=== PATIENT | female | born 1985 ===

== ENCOUNTER 2019-01-12 18:55 | Emergency (ER) | payer MEDICAID ==
--- NOTE | 2019-01-12 21:41 | Emergency Department Report ---
Chief Complaint: Extremity Injury, Lower Stated Complaint: LOWER BACK PAIN Time Seen by Provider: 01/12/19 21:38 - HPI History of Present Illness: pt presents with lower back pain that began two days ago after getting up from the bed hurts to bend over no fall, injury, or trauma no heavy lifting PMHx HTN, CKD, lupus states that she carvedilol and lisinopril, states she is out of nifedipine 90 mg sees a casting tester - Exam Vital Signs: Vital Signs 01/12/19 19:35 Temperature 98.3 F Pulse Rate 98 H Respiratory 18 Rate Blood Pressure 178/115 O2 Sat by Pulse 99 Oximetry MSE screening note: Focused history performed. Due to findings the following was ordered: UA, labs, XR lumbar spine ED Disposition for MSE Condition: Stable
[2019-01-12 22:21] LABS: Basophils # (Auto) 0.1 K/mm3 (0.0-0.1); Basophils % (Auto) 0.5 % (0.0-1.8); Eosinophils # (Auto) 0.1 K/mm3 (0.0-0.4); Eosinophils % (Auto) 0.9 % (0.0-4.3); Hematocrit 30.7 % (30.3-42.9); Hemoglobin 9.6 gm/dl (10.1-14.3); Lymphocytes # (Auto) 2.9 K/mm3 (1.2-5.4); Lymphocytes % (Auto) 28.3 % (13.4-35.0); Mean Corpuscular HGB Conc 31 % (30-34); Mean Corpuscular Volume 80 fl (79-97); Monocytes # (Auto) 0.5 K/mm3 (0.0-0.8); Monocytes % (Auto) 4.4 % (0.0-7.3); Platelet Count 313 K/mm3 (140-440); Red Blood Count 3.85 M/mm3 (3.65-5.03); Red Cell Distribution Width 15.6 % (13.2-15.2)
[2019-01-12 22:36] LABS: Calcium 8.9 mg/dL (8.4-10.2)
[2019-01-12 23:14] LABS: Amorphous Crystals,Urine Few; Bilirubin,Urine NEG (Negative); Blood,Urine NEG (Negative); Color,Urine Yellow (Yellow); Urobilinogen,Urine < 2.0 mg/dL (<2.0)
[2019-01-12 23:18] LABS: HCG Qualitative,Urine Negative (Negative)
--- NOTE | 2019-01-13 00:16 | XRay Report ---
PROCEDURE: XR SPINE LUMBOSACRAL 2-3V TECHNIQUE: 3 views of the lumbar spine were obtained. HISTORY: low back pain COMPARISONS: None FINDINGS: The disc heights and alignment appear normal. There is no evidence of fracture. The SI joints appear normal. The soft tissues appear normal. IMPRESSION: Within normal limits.. This document is electronically signed by David Harris MD., January 13 2019 12:14:37 AM ET
--- NOTE | 2019-01-13 00:39 | Emergency Department Report ---
ED Back Pain/Injury HPI - General Chief Complaint: Extremity Injury, Lower Stated Complaint: LOWER BACK PAIN Time Seen by Provider: 01/12/19 21:38 Source: patient Limitations: No Limitations - History of Present Illness Initial Comments: Pt is a 33 yo female who presents to the ED with c/o bilateral lower back pain that began two days ago. She states she was carrying her daughters motor bike bending over and the next morning when she got out of bed she began experiencing pain. She states movements hurt and bending over hurts. She denies any fall or trauma. Pt denies any numbness, weakness, bowel/bladder incontinence. The patient has a PMHx HTN, CKD, lupus. She states her last "Cr measurement was around 6." she states she is currently on the transplant list. She states she is supposed to be starting peritoneal dialysis soon, pt does see a heat treating furnace tender. Pt states that takes she carvedilol and lisinopril, states she is out of nifedipine 90 mg. The patient has not taken her nifedipine but states she has called to refill it and will be picking it up. - Related Data Previous Rx's Medication Instructions Recorded Last Taken Type Cyclobenzaprine [Flexeril] 10 mg PO QHS PRN #10 tablet 01/13/19 Unknown Rx Allergies Allergy/AdvReac Type Severity Reaction Status Date / Time No Known Allergies Allergy Verified 01/12/19 19:35 ED Review of Systems ROS: Stated complaint: LOWER BACK PAIN Other details as noted in HPI Comment: All other systems reviewed and negative ED Past Medical Hx - Past Medical History Hx Hypertension: Yes Hx Renal Disease: Yes (stage IV) Additional medical history: lupus - Surgical History Additional Surgical History: kidney biospy, - Social History Smoking Status: Never Smoker Substance Use Type: None - Medications Home Medications: Home Medications Medication Instructions Recorded Confirmed Last Taken Type Cyclobenzaprine [Flexeril] 10 mg PO QHS PRN #10 tablet 01/13/19 Unknown Rx ED Physical Exam - General Limitations: No Limitations General appearance: alert, in no apparent distress - Head Head exam: Present: atraumatic, normocephalic - Eye Eye exam: Present: normal appearance - ENT ENT exam: Present: mucous membranes moist - Respiratory Respiratory exam: Absent: respiratory distress - Cardiovascular Cardiovascular Exam: Present: regular rate, normal rhythm, normal heart sounds. Absent: systolic murmur, diastolic murmur, rubs, gallop - Back Exam Back exam: Present: normal inspection, full ROM, paraspinal tenderness (bilateral lumbar paraspinal muscular TTP, no midline C-spine, T-spine, or L- spine tenderness, no step offs, no deformities). Absent: vertebral tenderness - Neurological Exam Neurological exam: Present: alert, oriented X3, CN II-XII intact, normal gait, other (equal aircraft restorer strength, normal heel to craven, 5/5 muscle strength in the BUE/BLE, sensation intact, no focal neuro deficit). Absent: motor sensory d eficit - Psychiatric Psychiatric exam: Present: normal affect, normal mood - Skin Skin exam: Present: warm, dry, intact ED Course Vital Signs 01/12/19 01/12/19 01/13/19 19:35 21:38 01:02 Temperature 98.3 F 98.3 F Pulse Rate 98 H 99 H 88 Respiratory 18 18 17 Rate Blood Pressure 178/115 178/115 Blood Pressure 144/99 [Left] O2 Sat by Pulse 99 100 100 Oximetry ED Medical Decision Making - Lab Data Result diagrams: 01/12/19 21:51 01/12/19 21:51 Lab Results 01/12/19 01/12/19 01/12/19 Range/Units 21:51 21:51 22:47 WBC 10.3 (4.5-11.0) K/mm3 RBC 3.85 (3.65-5.03) M/mm3 Hgb 9.6 L (10.1-14.3) gm/dl Hct 30.7 (30.3-42.9) % MCV 80 (79-97) fl MCH 25 L (28-32) pg MCHC 31 (30-34) % RDW 15.6 H (13.2-15.2) % Plt Count 313 (140-440) K/mm3 Lymph % (Auto) 28.3 (13.4-35.0) % [place] % (Auto) 4.4 (0.0-7.3) % Eos % (Auto) 0.9 (0.0-4.3) % Baso % (Auto) 0.5 (0.0-1.8) % Lymph # 2.9 (1.2-5.4) K/mm3 [place] # 0.5 (0.0-0.8) K/mm3 Eos # 0.1 (0.0-0.4) K/mm3 Baso # 0.1 (0.0-0.1) K/mm3 Seg Neutrophils % 65.9 (40.0-70.0) % Seg Neutrophils # 6.8 (1.8-7.7) K/mm3 Sodium 139 (137-145) mmol/L Potassium 5.3 H (3.6-5.0) mmol/L Chloride 106.9 (98-107) mmol/L Carbon Dioxide 18 L (22-30) mmol/L Anion Gap 19 mmol/L BUN 56 H (7-17) mg/dL Creatinine 6.2 H (0.7-1.2) mg/dL Estimated GFR 8 ml/min BUN/Creatinine Ratio 9 % Glucose 93 (65-100) mg/dL Calcium 8.9 (8.4-10.2) mg/dL Urine Color Yellow (Yellow) Urine Turbidity Clear (Clear) Urine pH 5.0 (5.0-7.0) Ur Specific [place] 1.008 (1.003-1.030) Urine Protein 100 mg/dl (Negative) mg/dL Urine Glucose (UA) 50 (Negative) mg/dL Urine Ketones Neg (Negative) mg/dL Urine Blood Neg (Negative) Urine Nitrite Neg (Negative) Urine Bilirubin Neg (Negative) Urine Urobilinogen < 2.0 (<2.0) mg/dL Ur Leukocyte Esterase Neg (Negative) Urine WBC (Auto) 2.0 (0.0-6.0) /HPF Urine RBC (Auto) 3.0 (0.0-6.0) /HPF U Epithel Cells (Auto) 3.0 (0-13.0) /HPF Amorphous Crystals Few Urine HCG, Qual Negative (Negative) Vital Signs 01/12/19 01/12/19 01/13/19 19:35 21:38 01:02 Temperature 98.3 F 98.3 F Pulse Rate 98 H 99 H 88 Respiratory 18 18 17 Rate Blood Pressure 178/115 178/115 Blood Pressure 144/99 [Left] O2 Sat by Pulse 99 100 100 Oximetry - Radiology Data Radiology results: report reviewed PROCEDURE: XR SPINE LUMBOSACRAL 2-3V TECHNIQUE: 3 views of the lumbar spine were obtained. HISTORY: low back pain COMPARISONS: None FINDINGS: The disc heights and alignment appear normal. There is no evidence of fracture. The SI joints appear normal. The soft tissues appear normal. IMPRESSION: Within normal limits.. This document is electronically signed by David Harris MD., January 13 2019 12:14:37 AM ET - Medical Decision Making Pt is a 33 yo female who presents to the ED with c/o bilateral lower back pain that began two days ago. She states she was carrying her daughters motor bike bending over and the next morning when she got out of bed she began experiencing pain. She states movements hurt and bending over hurts. She denies any fall or trauma. Pt denies any numbness, weakness, bowel/bladder incontinence. The patient has a PMHx HTN, CKD, lupus. She states her last "Cr measurement was around 6." she states she is currently on the transplant list. She states she is supposed to be starting peritoneal dialysis soon, pt does see a heat treating furnace tender. Pt states that takes she carvedilol and lisinopril, states she is out of nifedipine 90 mg. The patient has not taken her nifedipine but states she has called to refill it and will be picking it up. XR of the l-spine with no acute process. UA is normal, urine preg is negative. Labs with elevated Cr/BUN per pt this is baseline. Will tx pt for muscle strain. Advised to use tylenol OTC. Will prescribe short course of muscle relaxer. Advised to not drive or operate heavy machinery while taking. Discussed to use ice, heating pad, rest, and epsom salt bath. Please follow up with PCP and heat treating furnace tender in the next 2-3 days. Return to the ED for any new or worsening symptoms. Discussed with pt the elevation in her blood pressure, improved on repeat but would need to follow up with PCP for further eval and management. - Differential Diagnosis strain, fx, dislocation, DDD Critical care attestation.: If time is entered above; I have spent that time in minutes in the direct care of this critically ill patient, excluding procedure time. ED Disposition Clinical Impression: Lumbar strain Qualifiers: Encounter type: initial encounter Qualified Code(s): S39.012A - Strain of muscle, fascia and tendon of lower back, initial encounter Back pain Qualifiers: Back pain location: low back pain Chronicity: acute Back pain laterality: bilateral Sciatica presence: without sciatica Qualified Code(s): M54.5 - Low back pain CKD (chronic kidney disease) Qualifiers: Chronic kidney disease stage: stage 4 (severe) Qualified Code(s): N18.4 - Chronic kidney disease, stage 4 (severe) HTN (hypertension) Qualifiers: Hypertension type: unspecified Qualified Code(s): I10 - Essential (primary) hypertension Disposition: TO HOME OR SELFCARE Is pt being admited?: No Does the pt Need Aspirin: No Condition: Stable Instructions: Muscle Strain (ED), Hypertension (ED) Additional Instructions: May use tylenol over the counter. Do not drive or operate heavy machinery while taking muscle relaxer. May use ice, heating pad, rest, and epsom salt bath. Please follow up with primary care doctor and heat treating furnace tender in the next 2-3 days. Return to the emergency room for any new or worsening symptoms. Please take all of your blood pressure medication and speak with your doctors regarding the elevation in your blood pressure. Prescriptions: Cyclobenzaprine [Flexeril] 10 mg PO QHS PRN #10 tablet PRN Reason: Muscle Spasm Referrals: ANT SEWELL MD [Primary Care Provider] - 2-3 Days your, heat treating furnace tender [Other] - 2-3 Days Time of Disposition: 00:49 Print Language: [place] CITIZ[place]
[2019-01-13 01:03] VITALS: BP 144/99
== END 2019-01-13 01:02 | disposition home or self-care (01) ==
LOC: ED 18:55
DX: S39.012A Strain of muscle, fascia and tendon of lower back, initial encounter (principal); I12.9 Hypertensive chronic kidney disease with stage 1 through stage 4 chronic kidney disease, or unspecified chronic kidney disease; N18.4 Chronic kidney disease, stage 4 (severe); Z87.39 Personal history of other diseases of the musculoskeletal system and connective tissue; X50.0XXA Overexertion from strenuous movement or load, initial encounter; Y93.89 Activity, other specified; Y92.89 Other specified places as the place of occurrence of the external cause; Y99.8 Other external cause status
CPT/HCPCS: 36415; 72100; 80048; 81001; 81025; 85025